=== PATIENT | male | born 1960 | race Caucasian/White ===

== ENCOUNTER → 2024-01-28 13:33 | Outpatient (REF) | payer OTHER, SELFPAY | LOC: PAVMRI 13:33 | PROVIDERS: ATTENDING PHYSICIAN Surgery; FAMILY PHYSICIAN Family Medicine | DX: R97.20 Elevated prostate specific antigen [PSA] (principal) | CPT/HCPCS: 72197; A9575 ==

== ENCOUNTER → 2025-01-11 06:43 | Outpatient (REF) | payer OTHER, SELFPAY | LOC: RAD 06:43 | PROVIDERS: ATTENDING PHYSICIAN Family Medicine | DX: M79.89 Other specified soft tissue disorders (principal) | CPT/HCPCS: 93971 ==

== ENCOUNTER 2025-01-11 08:54 | Emergency (ER) | payer OTHER, SELFPAY ==
[2025-01-11 09:02] VITALS: BP 162/100
--- NOTE | 2025-01-11 10:00 | ED.GENMED ---
History of Present Illness
General
Chief Complaint: DVT/Possible Blood Clot
Time Seen by Provider: 01/11/25 10:00
History of Present Illness
History of Present Illness:
FOCUSED PAST MEDICAL HISTORY
- Seizure disorder
REVIEW OF OLD RECORDS
- I received a message from Dr. Ferrari which indicates that the patient has ' acute occlusive DVT in the left gastrocnemius vein and acute occlusive superficial thrombosis throughout the left greater saphenous vein in the left thigh and lower leg'
Note:
CHIEF COMPLAINT(S)
Suspected blood clots, pain and sensation changes in left leg.
HISTORY OF PRESENT ILLNESS
The patient is a 64-year-old male who reported symptoms starting approximately two weeks ago. Initially, he experienced a burning sensation localized to the inside part of the left leg. This sensation progressed, moving into the knee and then above
it, before resolving and disappearing. During a scheduled outpatient ultrasound, the same sensation was reproduced when the shipping technician applied pressure with the ultrasound probe, confirming the location of the issue.
The patient denies any history of blood clots and reports that he does not currently feel pain or the previous sensation spontaneously. There is no noticeable swelling in the affected area. He is waiting for the official radiologists report to
determine whether the clots are superficial or deep. The primary care doctor ordered the ultrasound.
The sensation was described by the patient as a 'burning like sensation.' He is not currently experiencing any pain or significant discomfort, but noted that 'like today, when she was pushing on the ultrasound,' he felt the sensation.
PAST MEDICAL AND SURGICAL HISTORY
The patient has a history of seizures for which he takes Dylantin (phenytoin) for control. He also takes folic acid for balance but is unsure of the specific reason.
CHRONIC MEDICAL CONDITIONS SIGNIFICANTLY AFFECTING CARE
History of seizure disorder.
SOCIAL DETERMINANTS AFFECTING HEALTH
The patient reports no alcohol use.
MEDICATIONS
The patient is currently taking Dylantin for seizure control and folic acid.
REVIEW OF SYSTEMS
- Neurological: History of seizure disorder, currently well-controlled on medication.
- Musculoskeletal: Reports recent burning sensation in the left leg, without current swelling.
PHYSICAL EXAM
General: Alert, no acute distress.
Skin: Warm, dry.
Head: Normocephalic, atraumatic.
Neck: Supple, trachea midline.
Eye Ears, nose, mouth and throat: Oral mucosa moist.
Cardiovascular: Normal peripheral perfusion, No edema.
Respiratory: Respirations are non-labored.
Gastrointestinal: Abdomen nondistended.
Back: Normal range of motion, Normal alignment.
Musculoskeletal: Normal range of motion, normal strength, some mild tenderness to palpation of the medial joint line of the left knee, no definite palpable superficial thrombophlebitis
Neurological: Alert and oriented to person, place, time, and situation, No focal neurological deficit observed.
Psychiatric: Cooperative, appropriate mood & affect.
PROBLEM LIST
Acute:
- Suspected blood clots in the left leg
- Burning sensation in the left leg
Chronic:
- Seizure disorder controlled with medication
PLAN
Await the radiologists report for official evaluation of the ultrasound to determine if the clots are superficial or deep. If confirmed, consider anticoagulation therapy based on the severity and location of clots. The patient will be informed of
the findings and further management will be discussed following the radiological assessment. The patient reports working full-time and overall describes himself as healthy, aside from the seizure disorder.
DIFFERENTIAL DIAGNOSIS
The Differential Diagnosis includes, in no particular order and is not limited to:
1. Deep vein thrombosis (DVT)
2. Superficial thrombophlebitis
3. Peripheral neuropathy
4. Cellulitis
5. Lipedema
6. Chronic venous insufficiency
7. Muscle strain or sprain
8. Arterial insufficiency
9. Lymphangitis
10. Rheumatoid arthritis
RADIOLOGY
- See above
LABS
- CBC and chemistries unremarkable
UPDATE
-SUMMARY OF ENCOUNTER
The patient, a 64-year-old male, was seen due to suspicion of blood clots, confirmed by ultrasound techniques. Kidney function and hemoglobin levels were checked and found to be normal, which permitted the initiation of anticoagulation therapy with
apixaban (Eliquis) without dosage adjustment concerns. The patient has a sedentary lifestyle which likely contributed to clot formation. Counseling emphasized increasing mobility to prevent further complications. Education was provided on taking
apixaban: 10 mg twice daily for the first week, then 5 mg twice daily, with written instructions. Education was also given on the importance of avoiding nonsteroidal anti-inflammatory drugs (NSAIDs) like celecoxib (Celebrex) while on apixaban due to
bleeding risks.
DISPOSITION
Discharged.
ASSESSMENT
The suspected blood clot in the left leg requires oral anticoagulation therapy for prevention of potential complications.
PLAN
Initiate apixaban therapy as outlined. The patient will follow up with a contact lens polisher or the primary care provider for ongoing management and evaluation of treatment response.
PATIENT EDUCATION AND COUNSELING
The patient was educated about the dosing schedule of apixaban and the importance of avoiding NSAIDs while on this medication. Encouraged to increase physical activity to decrease the risk of future clot formation.
FOLLOW-UP INSTRUCTIONS
Follow up with a contact lens polisher or primary care provider for continued management of the clot and medications.
MEDICATION RECONCILIATION
Prescribed apixaban: 10 mg twice daily for the first week, then 5 mg twice daily. Advised to avoid celecoxib due to potential bleeding risks.
MEDICAL DECISION MAKING
- Number and Complexity of Problems Addressed: Chronic conditions affecting care include a history of suspected blood clots and seizure disorder controlled with medication.
- Data:
Category 1: Reviewed normal kidney function and hemoglobin levels, allowing for the prescription of apixaban without dosage adjustment.
- Risk: Prescription drug management initiated with apixaban therapy, advice provided to avoid NSAIDs due to risk of gastrointestinal bleeding.
DIAGNOSIS
- I82.401 Acute embolism and thrombosis of unspecified deep veins of right lower extremity
Phy Exam
Physical Exam
Physical Exam:
See HPI
Course
Orders/Labs/Results
Orders:
Orders
01/11/25 10:06
Apixaban [Eliquis] 10 mg PO NOW STA
01/11/25 10:18
Basic Metabolic Panel Urgent
Complete Blood Count/With Diff Urgent
Abnormal Lab Results
01/11/25
10:18
WBC 4.5 L 10^3/uL
(4.8-10.8)
MCV 70.3 L fL
(80.0-94.0)
MCH 22.2 L pg
(27.0-31.0)
MCHC 31.6 L g/dL
(33.0-37.0)
RDW 22.0 H %
(11.5-14.5)
Chloride 108 H mmol/L
(98-107)
Glucose 102 H mg/dl
(70-99)
01/11/25 10:18
01/11/25 10:18
Vital Signs
Initial and Last Documented VS:
Initial Vital Signs
Temp Pulse Resp BP Pulse Ox
36.9 C 64 16 162/100 97
01/11/25 09:02 01/11/25 09:02 01/11/25 09:02 01/11/25 09:02 01/11/25 09:02
Last Documented Vital Signs
Temp Pulse Resp BP Pulse Ox
36.9 C 61 16 144/80 97
01/11/25 09:02 01/11/25 10:18 01/11/25 10:18 01/11/25 10:18 01/11/25 10:18
*Pulse Oximetry
SaO2: 97
Oxygen Mode of Delivery: Room air
Patient hypoxic: no
*Critical Care Note
Total Time (30-74mins, 75-104mins- exclusive of procedures): Not Applicable
ED Attending Note
-
Portions of this chart may have been created with voice recognition software.� Occasional wrong word or��sound alike� substitutions may have occurred due to the inherent limitations of voice recognition software.
Discharge Plan
Departure
Patient Disposition: Home (Routine Discharge)
Date of Disposition: 01/11/25
Time of Disposition: 10:55
Patient with high blood pressure during this ER visit?: Yes
Discharge Problem:
DVT (deep venous thrombosis)
Instructions: Deep Vein Thrombosis (Blood Clots in the Legs) (DC), BLOOD PRESSURE
Prescriptions:
New
Eliquis DVT-PE Treat 30D Start 5 mg (74 tabs) tablets,dose pack
See Rx Instructions .ROUTE .COMPLEX Qty: 74 0RF
Rx Instructions:
orally per package directions
10mg (two pills) twice daily for 7 days then 5mg (one pill) twice daily
No Action
phenytoin sodium extended [Dilantin Extended] 100 MG capsule
100 mg PO BID
folic acid 1 MG tablet
1 mg PO DAILY
Referrals:
Nimo Miranda MD [Active, Hematology / Oncology]
Getachew Bruno MD [Family Provider, Family Practice]
Activity Restrictions/Additional Instructions:
Your hemoglobin is 13.1, your kidney function is normal. I sent a prescription for Eliquis to your pharmacy. I have also given you the contact information for a local contact lens polisher you could follow-up with.
Interventions
Interventions:
*Risk Screen - Suicide Last Done: 01/11/25 09:02
*General Assessment Last Done: 01/11/25 09:24
*Neglect/Abuse Screening Last Done: 01/11/25 09:24
*ED- Fall Risk Assessment Last Done: 01/11/25 09:24
*ED COVID-19 Vaccine History Last Done: 01/11/25 09:24
*Nursing Disposition Last Done: 01/11/25 11:05
ED- Cardiac Assessment Last Done: 01/11/25 09:25
ED- Pulmonary Assessment Last Done: 01/11/25 09:25
ED-Peripheral Vascular Assessment Last Done: 01/11/25 09:25
ED-Skin Assessment Last Done: 01/11/25 09:25
Discharge Date and Time
Discharge Date/Time: 01/11/25 11:15
Print Language: ERITREAN
[2025-01-11] MEDS: ELIQUIS 10 MG PO (10:16)
[2025-01-11 10:18] VITALS: BP 144/80
[2025-01-11 10:51] LABS: Blood Urea Nitrogen 17 mg/dl (9-20); Calcium 9.3 mg/dl (8.4-10.2); Carbon Dioxide 27 mmol/L (22-30); Chloride 108 mmol/L (98-107); Glucose 102 mg/dl (70-99); Hematocrit 41.4 % (39.0-52.0); Hemoglobin 13.1 g/dL (13.0-18.0); Mean Corp Hgb Conc. 31.6 g/dL (33.0-37.0); Mean Corpuscular Volume 70.3 fL (80.0-94.0); Nucleated Red Blood Cells % 0 % (-); Platelet Count 247 10^3/uL (130-400); Potassium 4.2 mmol/L (3.5-5.1); Red Cell Dist. Width 22.0 % (11.5-14.5); Sodium 140 mmol/L (135-145); eGFR > 60.00
== END 2025-01-11 11:15 | disposition home or self-care (01) ==
LOC: EMR 08:54
PROVIDERS: EMERGENCY PHYSICIAN Emergency Medicine; FAMILY PHYSICIAN Family Medicine
DX: I82.462 Acute embolism and thrombosis of left calf muscular vein (principal); I82.4Y2 Acute embolism and thrombosis of unspecified deep veins of left proximal lower extremity; G40.909 Epilepsy, unspecified, not intractable, without status epilepticus; Z71.82 Exercise counseling; Z79.01 Long term (current) use of anticoagulants
CPT/HCPCS: 99284; 80048; 85025

== ENCOUNTER → 2025-03-19 13:17 | Outpatient (REF) | payer OTHER, SELFPAY | LOC: HWLAB 13:17 | PROVIDERS: ATTENDING PHYSICIAN Internal Medicine Hematology & Oncology; FAMILY PHYSICIAN Family Medicine | DX: I82.402 Acute embolism and thrombosis of unspecified deep veins of left lower extremity (principal); D56.3 Thalassemia minor | CPT/HCPCS: 81240; 81241; 86146; 86147 ==

== ENCOUNTER → 2025-04-12 13:44 | Outpatient (REF) | payer OTHER, SELFPAY ==
[2025-04-12 14:49] LABS: D-Dimer 0.28 ug/mlFEU (0.00-0.50)
== END ==
LOC: REG 13:44
PROVIDERS: ATTENDING PHYSICIAN Internal Medicine Hematology & Oncology; FAMILY PHYSICIAN Family Medicine
DX: I82.402 Acute embolism and thrombosis of unspecified deep veins of left lower extremity (principal); D56.3 Thalassemia minor
CPT/HCPCS: 36415; 85379